=== PATIENT | female | born 1985 | race Caucasian/White ===

== ENCOUNTER 2020-08-06 13:01 | Emergency (ER) | payer OTHER, SELFPAY ==
--- NOTE | 2020-08-06 13:07 | ED_ITS ---
HPI - Skin/Abscess/Foreign Bdy General Chief complaint: Skin/Abscess/Foreign Body Stated complaint: BURN TO LEG Source: patient and RN notes reviewed Limitations: no limitations History of Present Illness HPI narrative: The patient, previously mostly healthy with immunizations UTD, presents with burn. Patient states she was cooking with oil, when some dropped upon her lower pacheco and upper ankle, but hour and half ago. She complains of mild pain and redness with rare scattered blisters, after cooling and rinsing it off. No hypesthesia, charring, other injury; symptoms are mild, worse with palpation. Related Data Allergies Allergy/AdvReac Type Severity Reaction Status Date / Time No Known Allergies Allergy Unverified 08/06/20 13:12 Review of Systems Review of Systems: Narrative: General/Constitutional: No weight loss,fever Eyes: N0: Redness,discharge Ears/Nose/Throat: No: Epistaxis,ear discharge Respiratory: Denies: Hemoptysis Gastrointestinal: No Vomiting, Bleeding-rectal Skin: No Lumps, eruption Neurologic: No Focal Weakness,Sz Hematologic: Denies: Petechiae/Purpura Psychiatric: No: Suicida ideationl All Other Systems: Reviewed and Negative [facility] Family History Family History (Updated 08/29/18 @ 09:55 by DOCTOR UNKNOWN) Mother Depression Social History Social History Smoking status: Never smoker Alcohol intake: current Comments At time of signature, agree with nursing past medical, surgical, social and family history. There is no relevant family history pertinent to the presenting complaint Exam Narrative: Exam Narrative: General Appearance: Well-nourished, Normocephalic, Conjunctiva clear Ear: External ear normal Nose: Normal nose, Nare clear Mouth/Throat: Normal appearing, Supple Respiratory: Airway patent, No respiratory distress Musculoskeletal: Moves all extremities; tender with rare, scattered clear blisters on pacheco Skin: Warm, Dry ; pacheco with mostly sunburn-like area of warmth and redness anteriorly, approx 4-5 per cent/palms sized Neurological: A&O x3, Normal affect Course Vital Signs Vital signs: Vital Signs Temperature 98 F 08/06/20 13:11 Pulse Rate 82 08/06/20 13:11 Respiratory Rate 16 08/06/20 13:11 Blood Pressure 128/85 08/06/20 13:11 Pulse Oximetry 100 08/06/20 13:11 Temperature 98 F 08/06/20 13:11 Pulse Rate 82 08/06/20 13:11 Respiratory Rate 16 08/06/20 13:11 Blood Pressure 128/85 08/06/20 13:11 Pulse Oximetry 100 08/06/20 13:11 Discharge Plan Discharge Clinical Impression: Burn Patient Disposition: Home, Self-Care Condition: Stable Instructions: Antibiotic Form, Second-Degree Burn (ED) Prescriptions: New bacitracin zinc-polymyxin B 500-10,000 unit/gram ointment 1 applic topical BID Qty: 14 RF: 1 tramadol 50 mg tablet 50 mg PO Q6H PRN (Reason: pain) Qty: 15 RF: 0 Follow-up/Referrals: UNKNOWN,DOCTOR [Primary Care Provider] -
[2020-08-06 13:11] VITALS: BP 128/85; PULSE 82; RESP 16; TEMP 36.6; O2SAT 100
[2020-08-06] MEDS: SILVER SULFADIAZINE 1% CR 50 GM JAR (*BKC) 1 APPLIC TOPICAL (13:24)
== END 2020-08-06 13:27 | disposition home or self-care (01) ==
PROVIDERS: Emergency Provider Emergency Medicine
DX: T24.102A Burn of first degree of unspecified site of left lower limb, except ankle and foot, initial encounter (principal); X10.2XXA Contact with fats and cooking oils, initial encounter
CPT/HCPCS: 16000; 99213; A9270; G0463

== ENCOUNTER → 2020-11-24 11:02 | Outpatient (CLI) | payer OTHER, SELFPAY ==
[2020-11-25 14:42] LABS: SARS-CoV-2 RNA PCR Negative
== END ==
PROVIDERS: Visit Provider Family Medicine
DX: Z20.822 Contact with and (suspected) exposure to COVID-19 (principal); R68.89 Other general symptoms and signs
CPT/HCPCS: C9803; U0003; U0005

== ENCOUNTER 2021-08-31 11:42 | Emergency (ER) | payer OTHER, SELFPAY ==
[2021-08-31 11:50] VITALS: BP 118/85; PULSE 84; RESP 16; TEMP 36.8; O2SAT 100
--- NOTE | 2021-08-31 13:16 | ED.URI ---
HPI - URI/Sore Throat General Chief Complaint: Upper Respiratory Infection Stated Complaint: swollen tonsils/hawley Source: patient and RN notes reviewed Limitations: no limitations History of Present Illness HPI Narrative: The vaccinated patient, a non-smoker/nondrinker, presents with sore throat. Patient states she has half week history of fever 102 over the weekend associated with sore throat. Symptoms are mild, slightly are temporarily relieved with Tylenol. No earache, significant cough; no loss of taste/smell, CP, vomiting/diarrhea, S OB Related Data Allergies Allergy/AdvReac Type Severity Reaction Status Date / Time No Known Allergies Allergy Unverified 08/31/21 11:58 Review of Systems Review of Systems: General/Constitutional: No weight loss, REPORTS fever Eyes: N0: Redness,discharge Ears/Nose/Throat: No: Epistaxis,ear discharge Respiratory: Denies: Hemoptysis Gastrointestinal: No Vomiting, Bleeding-rectal Skin: No Lumps, eruption Neurologic: No Focal Weakness,Sz Hematologic: Denies: Petechiae/Purpura Psychiatric: No: Suicida ideationl All Other Systems: Reviewed and Negative PMF[facility] Family History Family History (Updated 08/29/18 @ 09:55 by DOCTOR UNKNOWN) Mother Depression Social History Social History Smoking status: Never smoker Alcohol intake: current Comments At time of signature, agree with nursing past medical, surgical, social and family history. There is no relevant family history pertinent to the presenting complaint Exam Narrative: General Appearance: Well appearing, Well nourished EYE: PERRLA, Conjunctiva clear Ears: Auditory canal normal, TM normal Nose: Rhinorrhea, Mucousal erythema Mouth/Throat: MM moist, Uvula midline, Pharyngeal erythema without exudate Neck: Supple, No adenopathy Respiratory: No respiratory distress, Breath sounds equal, Clear to auscultation Cardiovascular: RRR, No JVD Musculoskeletal: Non tender, Normal strength Skin: Warm, Dry Neurological: A&O x3, CN II-XII intact Psychiatric: Normal mood, Normal affect Course Vital Signs Vital signs: Vital Signs Temperature 98.2 F 08/31/21 11:50 Pulse Rate 84 08/31/21 11:50 Respiratory Rate 16 08/31/21 11:50 Blood Pressure 118/85 08/31/21 11:50 Pulse Oximetry 100 08/31/21 11:50 Temperature 98.2 F 08/31/21 11:50 Pulse Rate 84 08/31/21 11:50 Respiratory Rate 16 08/31/21 11:50 Blood Pressure 118/85 08/31/21 11:50 Pulse Oximetry 100 08/31/21 11:50 MDM - URI/Sore Throat Lab Data Labs: Lab Results 08/31/21 Range/Units 11:58 POC SARS CoV-2 Ag Negative (Negative) Influenza A Screen Negative Reference Range: Negative Influenza B Screen Negative Reference Range: Negative Strep Screen Presumptive Negative *(Reference Range: Negative)* Discharge Plan Discharge Clinical Impression: Tonsil pain Patient Disposition: Home, Self-Care Condition: Stable Instructions: Antibiotic Form, Pharyngitis (ED) Prescriptions: New azithromycin 250 mg tablet See Rx Instructions .ROUTE .COMPLEX Qty: 6 RF: 0 lidocaine HCl [Lidocaine Viscous] 2 % solution 5 ml MUCOUS MEM QID PRN (Reason: pain) Qty: 100 RF: 0 Follow-up/Referrals: UNKNOWN,DOCTOR [Primary Care Provider] - Stand Alone Forms: Work/School Release IP
== END 2021-08-31 13:28 | disposition home or self-care (01) ==
PROVIDERS: Emergency Provider Emergency Medicine
DX: R07.0 Pain in throat (principal); Z20.822 Contact with and (suspected) exposure to COVID-19
CPT/HCPCS: 87081; 87426; 87804; 87880; 99213; C9803; G0463

== ENCOUNTER 2021-10-01 10:44 | Emergency (ER) | payer OTHER, SELFPAY ==
[2021-10-01 11:14] VITALS: BP 124/86; PULSE 78; RESP 16; TEMP 36.9; O2SAT 100
--- NOTE | 2021-10-01 12:17 | ED.URI ---
HPI - URI/Sore Throat General Chief Complaint: Upper Respiratory Infection Stated Complaint: sinus issues Source: patient and RN notes reviewed Limitations: no limitations History of Present Illness HPI Narrative: The vaccinated patient, nondrinker/non-smoker, presents with sinus congestion. Patient states and is worried that her carpool members have now tested positive for Covid. She has a shorter couple day history of sinus congestion; no fever, sore throat, earache; no loss of taste/smell, CP, vomiting/diarrhea S OB, Related Data Allergies Allergy/AdvReac Type Severity Reaction Status Date / Time No Known Allergies Allergy Verified 10/01/21 11:12 Review of Systems Review of Systems: General/Constitutional: No weight loss,fever Eyes: N0: Redness,discharge Ears/Nose/Throat: No: Epistaxis,ear discharge Respiratory: Denies: Hemoptysis Gastrointestinal: No Vomiting, Bleeding-rectal Skin: No Lumps, eruption Neurologic: No Focal Weakness,Sz Hematologic: Denies: Petechiae/Purpura Psychiatric: No: Suicida ideationl All Other Systems: Reviewed and Negative [facility] Family History Family History (Updated 08/29/18 @ 09:55 by DOCTOR UNKNOWN) Mother Depression Social History Social History Smoking status: Never smoker Alcohol intake: current Comments At time of signature, agree with nursing past medical, surgical, social and family history. There is no relevant family history pertinent to the presenting complaint Exam Narrative: General Appearance: Well appearing, overweight/well nourished EYE: PERRLA, Conjunctiva clear Ears: Auditory canal normal, TM normal Nose: Rhinorrhea, Mucousal erythema Mouth/Throat: MM moist, Uvula midline, Pharyngeal erythema Neck: Supple, No adenopathy Respiratory: No respiratory distress, Breath sounds equal, Clear to auscultation Cardiovascular: RRR, No JVD Musculoskeletal: Non tender, Normal strength Skin: Warm, Dry Neurological: A&O x3, CN II-XII intact Psychiatric: Normal mood, Normal affect Course Vital Signs Vital signs: Vital Signs Temperature 98.5 F 10/01/21 11:14 Pulse Rate 78 10/01/21 11:14 Respiratory Rate 16 10/01/21 11:14 Blood Pressure 124/86 10/01/21 11:14 Pulse Oximetry 100 10/01/21 11:14 Temperature 98.5 F 10/01/21 11:14 Pulse Rate 78 10/01/21 11:14 Respiratory Rate 16 10/01/21 11:14 Blood Pressure 124/86 10/01/21 11:14 Pulse Oximetry 100 10/01/21 11:14 MDM - URI/Sore Throat Lab Data Labs: Strep Screen Presumptive Negative *(Reference Range: Negative)* Discharge Plan Discharge Clinical Impression: Sinus headache Patient Disposition: Home, Self-Care Condition: Stable Instructions: Upper Respiratory Infection (ED) Prescriptions: New azithromycin 250 mg tablet See Rx Instructions .ROUTE .COMPLEX Qty: 6 RF: 0 benzonatate 100 mg capsule 100 mg PO TID PRN (Reason: cough) Qty: 20 RF: 2 azelastine 137 mcg (0.1 %) aerosol,spray 137 mcg NASAL Q12H Qty: 30 RF: 0 Other Ambulatory Orders: SARS-CoV-2 RNA, Qual RT-PCR (Routine) Location: Determined by Patient Ordered By: Mathieu Simons Follow-up/Referrals: UNKNOWN,DOCTOR [Primary Care Provider] -
== END 2021-10-01 12:25 | disposition home or self-care (01) ==
PROVIDERS: Emergency Provider Emergency Medicine
DX: R51.9 Headache, unspecified (principal); Z20.822 Contact with and (suspected) exposure to COVID-19
CPT/HCPCS: 87081; 87880; 99213; G0463

== ENCOUNTER 2023-04-20 15:46 | Outpatient (CLI) | payer OTHER, SELFPAY ==
--- NOTE | ~2023-04-20 | US_ITS ---
EXAMINATION: US pelvic complete DATE: 04/20/2023 16:07 INDICATION: Displacement of intrauterine contraceptive device TECHNIQUE: Multiple transabdominal sonographic images of the pelvis were obtained. COMPARISON: 06/13/2018 FINDINGS: Uterus: 9.9 x 2.4 x 4.1 cm. IUD in normal position within the endometrial canal in the body of the ut erus. Endometrial complex measures 4 mm. Right Ovary: 4.2 x 2.3 x 2.5 cm. Vascular flow is present. 1.8 cm circumscribed anechoic simple cyst or dominant follicle. Left Ovary: 3.0 x 1.3 x 2.5 cm. Vascular flow is present. No adnexal mass. There is no free fluid in the pelvis. IMPRESSION: Normal transabdominal pelvic sonogram findings. IUD is in good position. Reviewed, dictated and finalized at location K.
== END 2023-04-20 15:47 ==
LOC: MICIMG 15:47
PROVIDERS: PCP Nurse Practitioner; Visit Provider Nurse Practitioner
DX: T83.32XA Displacement of intrauterine contraceptive device, initial encounter (principal)
CPT/HCPCS: 76856

== ENCOUNTER 2023-12-14 17:14 | Emergency (ER) | payer OTHER, SELFPAY ==
[2023-12-14 17:24] VITALS: BP 124/95; PULSE 76; RESP 18; TEMP 36.5; O2SAT 100
--- NOTE | 2023-12-14 17:32 | ED.GENADULT ---
HPI - General Adult General Chief complaint: Upper Respiratory Infection Stated complaint: Cough,Sinus Pressure,Congestion,Fever,Edith Endave Eye Source: patient, RN notes reviewed and old records reviewed Mode of arrival: ambulatory Limitations: no limitations History of Present Illness HPI narrative: 38-year-old female presents to [facility] with complaints cough, congestion, fever, myalgia this started Tuesday night into Tuesday. Patient is taking [id number] medications patient states symptoms are slightly improving then today woke up with bilateral eye redness, irritation, crusting. Related Data Allergies Allergy/AdvReac Type Severity Reaction Status Date / Time No Known Allergies Allergy Verified 12/14/23 17:32 Review of Systems Constitutional: Constitutional: Reports no additional constitutional complaints, Reports body ache(s), Denies chills, Reports fatigue, Reports fever(s) and Denies headache(s) Eyes: Eyes: Reports no additional eye complaints and Denies blurry vision ENT: Reports system reviewed and no additional complaints, except as documented, Denies vertigo, Denies dizziness, Denies ear discharge, Denies otalgia, Denies facial pain, Reports headache(s), Reports nasal congestion, Reports nasal discharge, Reports sinus pain, Reports sinus pressure and Denies sore throat Cardiovascular: Cardiovascular: Reports no additional cardiovascular complaints, Denies chest pain, Denies chest pain at rest, Denies rapid heart rate and Denies dyspnea Respiratory: Respiratory: Reports no additional respiratory complaints, Reports chest congestion, Reports cough, Denies pain on inspiration, Denies pain with cough and Denies dyspnea Gastrointestinal: Gastrointestinal: Denies abdominal pain, Denies diarrhea, Denies nausea and Denies vomiting Integumentary/Breasts: Skin/Breast: Denies rash Neurologic: Reports system reviewed and no additional complaints, except as documented, Denies vertigo, Denies dizziness and Reports headache(s) Endocrine: Endocrine: Denies fatigue PMFSH Family History Family History Mother Depression Social History Social History Smoking status: Never smoker Alcohol intake: current Comments At the time of my signature, I reviewed and agree with the nursing past medical, surgical, social, and family history. There is no relevant family history pertinent to the patient complaint. Exam Const: General: cooperative, healthy appearing, no acute distress and well nourished Nutritional Appearance: well nourished Orientation/consciousness: patient oriented x3 Limitations: no limitations HENMT: Head: normal to inspection and normocephalic Ears: external ears normal, TM's normal bilaterally, EAC's normal and mastoids normal Face/Nose/Sinus: Normal nasal mucous membranes and turbinates present, normal facial exam and No sinus tenderness Face and sinus: normal facial exam Mouth: Yes Normal oral and palatal mucosa present, Yes oropharynx normal and Yes moist mucous membranes Throat: posterior oropharynx normal, tonsils normal, uvula midline and no uvular edema Eyes: Periorbital: periorbital findings normal Eyelids: eyelids normal Conjunctivae: conjunctival abnormality ( erythematous) bilateral discharge purulent Sclera: sclerae normal Pupils: Equal, round and reactive pupils present Resp: Effort & Inspection: normal respiratory effort, able to speak in complete sentences, no audible wheezes, no cough, no respiratory distress and no retractions Auscultation: clear to auscultation bilaterally, no crackles, no rales, no rhonchi and no wheezes Cardio: Rate: regular rate Rhythm: regular rhythm Skin: General skin exam: normal color and no rashes or lesions noted Neuro: General: patient oriented x3 Cranial nerves: Yes Equal, round and reactive pupils present Psych: Appearance: grossly normal Ment
== END 2023-12-14 17:47 | disposition home or self-care (01) ==
PROVIDERS: Emergency Provider Registered Nurse; PCP Nurse Practitioner
DX: H10.33 Unspecified acute conjunctivitis, bilateral (principal); J10.1 Influenza due to other identified influenza virus with other respiratory manifestations; Z20.822 Contact with and (suspected) exposure to COVID-19
CPT/HCPCS: 87426; 87804; 99213; G0463

== ENCOUNTER 2024-10-04 10:45 | Outpatient (CLI) | payer OTHER, SELFPAY ==
--- NOTE | ~2024-10-04 | US_ITS ---
US transvaginal Ordering provider: Maria Luisa Strickland, MELINDA History: . Displacement of intrauterine contraceptive device . Comparison: None. Technique: endovaginal ultrasound of the pelvis (Doppler ultrasound interrogation techniques used as needed for this exam.) FINDINGS: CERVIX: Normal. UTERUS: Measures 7.9x 3.6x 3.6 cm in length which is within normal limits and is anteverted. No myom etrial masses. ENDOMETRIUM: Normal in thickness measuring 3.9 mm. IUD is seen in the lower segment. No endometrial m asses, cysts or fluid. CUL DE SAC: No free fluid. RIGHT OVARY: Normal in size measuring 1.1x 2.1x 1.2 cm. Normal echotexture. Doppler vascular flow pre sent. LEFT OVARY: Not visualized. ADNEXA: Normal. No mass. IMPRESSION: IUD is seen in the lower segment. Nonvisualization of the left ovary. Otherwise, normal pelvic ultras ound. Reviewed, dictated and finalized at location A. DRESSER IMPRESSION: IUD is seen in the lower segment. Nonvisualization of the left ovary. Otherwise , normal pelvic ultrasound.
== END 2024-10-04 10:46 | disposition home or self-care (01) ==
LOC: MICIMG 10:46
PROVIDERS: PCP Nurse Practitioner Women's Health; Visit Provider Nurse Practitioner Women's Health
DX: T83.32XA Displacement of intrauterine contraceptive device, initial encounter (principal)
CPT/HCPCS: 76830

== ENCOUNTER 2025-09-09 13:47 | Outpatient (CLI) | payer OTHER, SELFPAY ==
--- NOTE | ~2025-09-09 | US_ITS ---
EXAMINATION: US pelvic complete, 09/09/2025 14:00 WASH OPERATOR HISTORY: missing IUD string Comparison: None Technique: Johns-scale and color Doppler images were obtained. Findings: Uterus: Uterus anteverted 8.5 x 2.9 x 4.9 cm, IUD noted in appropriate location in the uterine cavity. . Endometrium is not well visualized. Right Ovary:Right ovary 2.3 x 1.7 x 3.2 cm, no adnexal mass, normal flow. Left Ovary: Left ovary 2.5 x 1.5 x 3 cm, no adnexal mass, normal flow. Free Fluid: None Impression: IUD in appropriate location Reviewed, dictated and finalized at location P. OPERATOR Impression: IUD in appropriate location
== END 2025-09-09 13:48 | disposition home or self-care (01) ==
LOC: MICIMG 13:48
DX: T83.32XA Displacement of intrauterine contraceptive device, initial encounter (principal)
CPT/HCPCS: 76856